=== PATIENT | male | born 2000 | race Caucasian/White ===

== ENCOUNTER 2025-05-22 09:54 | Emergency (ER) | payer MEDICARE, SELFPAY ==
--- NOTE | ~2025-05-22 | XR_ITS ---
EXAMINATION: XR chest 1V portable COMPARISON: No comparisons available. HISTORY: weakness FINDINGS: The lungs are clear, no effusion. No pneumothorax. Heart is normal size. Mediastinal and hilar contours are within normal limits. Bony thorax no acute abnormality. Miscellaneous: None Impression: No acute cardiopulmonary abnormality. Reviewed, dictated and finalized at location [facility] Impression: No acute cardiopulmonary abnormality.
[2025-05-22 10:18] VITALS: BP 150/96; PULSE 98; RESP 20; TEMP 36.8; O2SAT 98
[2025-05-22 11:48] VITALS: BP 151/95; PULSE 84; RESP 17; O2SAT 98
[2025-05-22] MEDS: LACTATED RINGERS 1,000 ML 999 ML IV CONT (12:09)
[2025-05-22 12:20] LABS: Hematocrit 42.8 % (42.0-52.0); Hemoglobin 14.4 g/dL (14.0-18.0); Immature Granulocyte Percent A 0.4 % (0-0.5); Lymphocytes Absolute Auto 1.46 K/mm3 (0.9-3.2); Mean Corpuscular HGB Conc 33.6 g/dl (32-36); Mean Corpuscular Hemoglobin 28.7 pg (26-34); Mean Corpuscular Volume 85.3 fl (80-100); Nucleated Red Blood Cells Absolute Auto 0.000 K/mm3 (0.0-0.012); Nucleated Red Blood Cells Perc 0.0 % (0.0-0.2); Platelet Count Result 256 k/mm3 (150-375); Red Blood Count 5.02 M/mm3 (4.6-6.20); White Blood Count 8.9 K/mm3 (4.5-10.0)
--- NOTE | 2025-05-22 12:35 | ED_ITS ---
HPI - General Adult General Chief complaint: Unspecified Stated complaint: I have been having trouble walking and urinating' Time Seen by Provider: 05/22/25 11:55 History of Present Illness HPI narrative: 25-year-old male presenting to the emergency department for evaluation for increased generalized fatigue and generalized weakness along with reported difficulty urinating. Patient states symptoms started approximately 3 weeks ago worsened over the last 3 days. Patient denies any significant past medical history. Patient states that he does not have a current primary care physician. Patient reports no prior history of diabetes but states he was a ?borderline?. Time of evaluation patient is resting comfortably and in no distress. Related Data Allergies Allergy/AdvReac Type Severity Reaction Status Date / Time No Known Allergies Allergy Verified 05/22/25 10:25 Review of Systems 2 Review of Systems: All systems reviewed & are unremarkable except as noted in HPI and below Exam 2 Narrative: APPEARANCE: Well appearing, no pain, no distress, well-nourished. HEAD: normocephalic, atraumatic. EYES: PERRLA/EOMI, conjunctivae clear. NOSE: Normal no drainage EARS:TMS clear with good light reflex. THROAT: Pharynx clear, no exudate. NECK: Supple. No adenopathy, no masses. RESPIRATORY: Airway patent, respirations nonlabored. Clear to auscultation bilaterally, no rales, rhonchi, wheezing. CARDIOVASCULAR: Regular rate and rhythm without murmurs rubs or gallops. ABDOMINAL: Soft, nontender, nondistended, normal bowel sounds MUSCULOSKELETAL: Moves all extremities. Strength/ROM intact, No edema, No calf tenderness. NEURO: Alert. Cranial nerves II through XII intact. Good gait. Good coordination SKIN: Warm, dry. Normal Color Course Vital Signs Vital signs: Vital Signs Temperature 98.2 F 05/22/25 10:18 Pulse Rate 98 05/22/25 10:18 Respiratory Rate 20 05/22/25 10:18 Blood Pressure 150/96 H 05/22/25 10:18 Pulse Oximetry 98 05/22/25 10:18 Oxygen Delivery Room Air 05/22/25 10:18 Temperature 98.2 F 05/22/25 10:18 Pulse Rate 87 05/22/25 14:35 Respiratory Rate 17 05/22/25 14:35 Blood Pressure 120/77 05/22/25 14:35 Pulse Oximetry 100 05/22/25 14:35 Oxygen Delivery Room Air 05/22/25 11:48 Medical Decision Making MDM Narrative Medical decision making narrative: 25-year-old male present to the emergency department for evaluation for increased generalized weakness that is been ongoing for the last few weeks and acutely worsened. Patient had approximately 900 mL of retained urine on postvoid residual. Patient is currently afebrile with no leukocytosis and normal kidney function. Patient did have cloudy urine of sign ketones with no underlying evidence of infection. Patient was negative for influenza RSV COVID gonorrhea and chlamydia. Barba catheter was placed due to the urinary retention. Patient was started on Flomax. Patient will be encouraged to have close follow-up with Urology. Differential Diagnosis Differential Diagnosis: COVID, RSV influenza, urinary tract infection, gonorrhea, chlamydia Vital Signs Vital Signs: Vital Signs Temperature 98.2 F 05/22/25 10:18 Pulse Rate 98 05/22/25 10:18 Respiratory Rate 20 05/22/25 10:18 Blood Pressure 150/96 H 05/22/25 10:18 Pulse Oximetry 98 05/22/25 10:18 Oxygen Delivery Room Air 05/22/25 10:18 Temperature 98.2 F 05/22/25 10:18 Pulse Rate 87 05/22/25 14:35 Respiratory Rate 17 05/22/25 14:35 Blood Pressure 120/77 05/22/25 14:35 Pulse Oximetry 100 05/22/25 14:35 Oxygen Delivery Room Air 05/22/25 11:48 Lab Data Lab results reviewed: Yes I reviewed the patient's lab results. 05/22/25 12:12 05/22/25 12:12 Labs: Lab Results 05/22/25 05/22/25 05/22/25 Range/Units 12:12 12:21 12:47 WBC 8.9 (4.5-10.0) K/mm3 RBC 5.02 (4.6-6.20) M/mm3 Hgb 14.4 (14.0-18.0) g/dL Hct 42.8 (42.0-52.0) % MCV 85.3 (80-100) fl MCH 28.7 (26-34) pg MCHC 33.6 (32-36) g/dl RDW 13.2 (11.5-14.5) % Plt Count 256 (150-375) k/mm3 MPV 10.1 (7.4-10.4) fl Immature Gran % (Auto) 0.4 (0-0.5) % Neut % (Auto) 76.4 H (45.5-73.1) % Lymph % (Auto) 16.4 L (18.3-44.2) % [place] % (Auto) 6.4 (2.6-8.5) % Eos % (Auto) 0.1 (0-4.4) % Baso % (Auto) 0.3 (0.2-1.2) % Lymph # (Auto) 1.46 (0.9-3.2) K/mm3 [place] # (Auto) 0.6 (0.1-0.6) K/mm3 Eos # (Auto) 0.0 (0-0.3) K/mm3 Baso # (Auto) 0.0 (0.0-0.1) K/mm3 Abs Immat Gran (auto) 0.04 H (0.00-0.031) K/mm3 Absolute Neuts (auto) 6.8 H (1.3-6.7) K/mm3 Absolute Nucleated RBC 0.000 (0.0-0.012) K/mm3 Nucleated RBC % 0.0 (0.0-0.2) % Sodium 137 (137-145) mmol/L Potassium 4.4 (3.4-5.0) mmol/L Chloride 102 (98-107) mmol/L Carbon Dioxide 24 (22-30) mmol/L Anion Gap 11 (4-12) mmol/L BUN 19 (9-20) mg/dL Creatinine 1.00 (0.7-1.3) mg/dL Estim Creat Clear Calc 157 ml/min Estimated GFR > 60 (59 - ) Glucose 83 (65-110) mg/dL POC Capillary Glucose 82 (65-105) mg/dl Calcium 9.1 (8.4-10.2) mg/dL Total Bilirubin 1.2 (0.2-1.3) mg/dL AST 44 (17-59) U/L ALT 54 H (6-50) U/L Alkaline Phosphatase 67 (38-126) U/L Total Protein 8.3 H (6.3-8.2) g/dL Albumin 4.8 (3.5-5.1) g/dL Urine Color Yellow (Yellow) Urine Appearance Cloudy H (Clear) Urine pH 6.5 (5.0-9.0) Ur Specific [place] 1.022 (1.001-1.035) Urine Protein Trace (Negative) mg/dL Urine Glucose (UA) Negative (Negative) mg/dL Urine Ketones 2+ H (Negative) mg/dL Ur Blood (Man) Negative (Negative) Urine Nitrate Negative (Negative) Urine Bilirubin Negative (Negative) Urine Urobilinogen 1.0 (<2.0) mg/dL Leukocyte Esterase Rfl Negative (Negative) EPIFANIO/UL Urine RBC 0-2 (0-2) /hpf Urine WBC 0-5 (0-3) /hpf Ur Squamous Epith Cells None seen (Few) /hpf Urine Bacteria None seen /hpf Urine Casts 0-2 C. trachomatis (PCR) Not detected (NOT DETECTE) Influenza A (RT-PCR) Negative (Negative) Influenza B (RT-PCR) Negative (Negative) N. gonorrhoeae (PCR) Not detected (NOT DETECTE) RSV (RT-PCR) Negative (Negative) SARS-CoV-2 RNA (RT-PCR) Negative (Negative) Imaging Data Radiologist's impression: Impressions Chest X-Ray 05/22/25 13:12 Impression: No acute cardiopulmonary abnormality. Discharge Plan Discharge Clinical Impression: Acute urinary retention Patient Disposition: Home Condition: Stable Instructions: Antibiotic Form, Urinary Retention in Men (ED), Barba Catheter Placement and Care (ED) Additional Instructions: Barba catheter care as directed. Flomax to help with urinary retention. Have close follow-up with Urology. If you have any worsening symptoms then please call or return to the emergency department. Patient Language: Japanese Prescriptions: New tamsulosin [Flomax] 0.4 mg capsule 0.4 mg PO DAILY 14 Days Qty: 14 0RF Follow-up/Referrals: [facility], [Other] Gwen Moreno MD [Physician, Urology]
[2025-05-22 12:43] LABS: Alanine Aminotransferase 54 U/L (6-50); Albumin Level 4.8 g/dL (3.5-5.1); Alkaline Phosphatase 67 U/L (38-126); Anion Gap 11 mmol/L (4-12); Aspartate Amino Transferase 44 U/L (17-59); Bilirubin,Total 1.2 mg/dL (0.2-1.3); Blood Urea Nitrogen 19 mg/dL (9-20); Calcium 9.1 mg/dL (8.4-10.2); Carbon Dioxide 24 mmol/L (22-30); Chloride 102 mmol/L (98-107); Estimated CRCL calculation 157 ml/min; Estimated Glomerular Filt Rate > 60; Glucose 83 mg/dL (65-110); Potassium 4.4 mmol/L (3.4-5.0); Sodium 137 mmol/L (137-145); Total Protein 8.3 g/dL (6.3-8.2)
[2025-05-22 12:58] LABS: Add Urine Microscopic? YES; Appearance Urine Cloudy (Clear); Glucose Urine UA Negative (Negative); Leukocyte Esterase Ur Negative LEU/UL (Negative); Nitrate Urine Negative (Negative); Non Pathogenic Casts 0-2; Specific Grav Ur 1.022 (1.001-1.035)
[2025-05-22 13:30] LABS: Influenza A QL RT-PCR Negative (Negative); Influenza B QL RT-PCR Negative (Negative); RSV RNA, RT-PCR Negative (Negative); SARS-CoV-2 RNA PCR Negative (Negative)
[2025-05-22 14:35] VITALS: BP 120/77; PULSE 87; RESP 17; O2SAT 100
[2025-05-22] MEDS: TAMSULOSIN HCL 0.4 MG CAPSULE PO (15:22)
== END 2025-05-22 15:48 | disposition home or self-care (01) ==
PROVIDERS: Emergency Provider Emergency Medicine
DX: R33.9 Retention of urine, unspecified (principal); Z20.822 Contact with and (suspected) exposure to COVID-19; R73.03 Prediabetes
CPT/HCPCS: 36415; 51702; 71045; 80053; 81001; 82948; 85025; 87491; 87591; 87637; 99283; A9270; J7120